=== PATIENT | female | born 1995 | race Caucasian/White ===

== ENCOUNTER 2018-06-22 06:50 | Emergency (ER) | payer OTHER ==
[2018-06-22 06:56] VITALS: BP 118/40
--- NOTE | 2018-06-22 06:59 | EDPHY ---
H & P Stated Complaint: Fall on ice, R ankle pain when putting pressure on it Time Seen by Provider: 06/22/18 06:58 HPI/ROS: Chief Complaint: Right ankle pain HPI: The patient presents the emergency department with right ankle pain after she sustained an inversion injury last night slipping on ice. The patient denies any pain in her right knee, hip or back. She denies any acute numbness or weakness. She denies additional acute complaints. REVIEW OF SYSTEMS: Neuro: no headache, numbness, weakness Musculoskeletal: as above Skin: no abrasion or lacerations Source: Patient Exam Limitations: No limitations - Personal History LMP (Females 10-55): IUD In Place Current Tetanus Diphtheria and Acellular Pertussis (TDAP): Yes - Medical/Surgical History Hx Asthma: No Hx Chronic Respiratory Disease: No Hx Diabetes: No Hx Cardiac Disease: No Hx Renal Disease: No Hx Cirrhosis: No Hx Alcoholism: No Hx HIV/AIDS: No Hx Splenectomy or Spleen Trauma: No Other PMH: Denies - Social History Smoking Status: Never smoked - Physical Exam Exam: General appearance: alert no distress Right ankle: There is swelling and tenderness over the lateral. Ankle joint is stable and there is no tenderness over the Achilles tendon. The foot is nontender without swelling. Neurologic exam: The patient has normal sensation and motor function distal to the injury. Vascular exam: Normal pulses and capillary refill in the foot DIFFERENTIAL DIAGNOSIS: After history and physical exam differential diagnosis was considered for ankle injury including sprain, fracture, dislocation and soft tissue injury. Constitutional: Initial Vital Signs Temperature (C) 36.8 C 06/22/18 06:54 Heart Rate 62 06/22/18 06:54 Respiratory Rate 18 06/22/18 06:54 Blood Pressure 118/40 L 06/22/18 06:54 O2 Sat (%) 95 06/22/18 06:54 O2 Delivery Mode Room Air Allergies/Adverse Reactions: amoxicillin Allergy (Verified 06/22/18 06:54) Home Medications: Medication Instructions Recorded NK [No Known Home Meds] 06/22/18 Medical Decision Making - Diagnostics Imaging Results: Right ankle x-ray: Images interpreted by myself, negative for acute fracture. ED Course/Re-evaluation: The patient presents to the ED with ankle sprain. She will be placed in a [place] boot. She is advised to follow up with our on-call orthopedic surgeon for any unimproved symptoms past 5-7 days. Departure - Departure Disposition: Home, Routine, Self-Care Clinical Impression: Right ankle sprain Condition: Good Instructions: Ankle Sprain (DC) Additional Instructions: 1. Take Ibuprofen or Motrin 600 mg by mouth three times a day. 2. Wear splint as needed for discomfort 3. Your x-ray demonstrates no evidence of an obvious fracture. In the event you have persistent pain past 5-7 days I do recommend following up with the orthopedic surgeon you have been referred to for further evaluation. Referrals: Chicho Arzola MD [Medical Doctor] - As per Instructions
== END 2018-06-22 07:34 | disposition home or self-care (01) ==
DX: S93.401A Sprain of unspecified ligament of right ankle, initial encounter (principal); W00.0XXA Fall on same level due to ice and snow, initial encounter; Y93.9 Activity, unspecified; Y92.9 Unspecified place or not applicable